=== PATIENT | male | born 2005 | race Two or more races ===

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

== ENCOUNTER 2024-07-14 09:41 | Emergency (ER) | payer MEDICAID ==
[~2024-07-14] VITALS: Ht 170.2 cm; Wt 86.6 kg
[2024-07-14] MEDS: SILVER SULFADIAZINE 1 % TOPICAL CREAM 50GM TOP ONE (11:14)
[2024-07-14] MEDS: IBUPROFEN 800 MG TAB PO ONE (11:14)
[2024-07-14] MEDS ORDERED: CEPH500C PO (11:24)
[2024-07-14] MEDS ORDERED: NAPR-746 PO (11:24)
[2024-07-14 11:34] VITALS: BP 123/70; PULSE 55; RESP 18; TEMP 97.6; O2SAT 100
== END 2024-07-14 11:36 | disposition home or self-care (01) ==
LOC: ER 09:41
DX: T23.252A Burn of second degree of left palm, initial encounter (principal); F12.10 Cannabis abuse, uncomplicated; X16.XXXA Contact with hot heating appliances, radiators and pipes, initial encounter; Y93.89 Activity, other specified; Y92.89 Other specified places as the place of occurrence of the external cause; Y99.8 Other external cause status
CPT/HCPCS: 16020